=== PATIENT | female | born 1970 | race Caucasian/White ===

== ENCOUNTER 2024-06-20 06:23 | Day surgery (SDC) | payer BC, SELFPAY | END 2024-06-20 12:58 | disposition home or self-care (01) | LOC: GI 06:23 | PROVIDERS: ATTENDING PHYSICIAN Internal Medicine Gastroenterology | DX: Z12.11 Encounter for screening for malignant neoplasm of colon (principal); K64.8 Other hemorrhoids; K57.30 Diverticulosis of large intestine without perforation or abscess without bleeding; R12 Heartburn; K31.89 Other diseases of stomach and duodenum | CPT/HCPCS: 43239; G0121; 88305; 88342 ==

== ENCOUNTER → 2024-07-14 18:42 | Outpatient (REF) | payer BC, SELFPAY | LOC: WDC 18:42 | PROVIDERS: ATTENDING PHYSICIAN Internal Medicine | DX: Z12.31 Encounter for screening mammogram for malignant neoplasm of breast (principal) | CPT/HCPCS: 77063; 77067 ==